=== PATIENT | male | born 1970 | race Caucasian/White ===

== ENCOUNTER 2017-08-22 09:57 | Emergency (ER) | payer SELFPAY ==
[~2017-08-22] VITALS: Ht 180.3 cm; Wt 79.0 kg
[2017-08-22 10:05] VITALS: TEMP 36.3; Ht 180.3 cm; Wt 79.0 kg
[2017-08-22] MEDS ORDERED: ACETAMINOPHEN 500 MG TAB PO STA (10:47)
[2017-08-22] MEDS ORDERED: MoRPHine SULFATE 4 MG/ML 1 ML CARP\\VIAL IV STA (10:47)
[2017-08-22] MEDS ORDERED: KETOROLAC TROMETHAMINE 30 MG/ML VIAL IV STA (10:47)
[2017-08-22] MEDS ORDERED: KFL/250 PO (10:49)
[2017-08-22] MEDS ORDERED: SULF1TAB92 PO (10:49)
--- NOTE | 2017-08-22 10:52 | EMERGENCY ROOM VISIT NOTE ---
History Report prepared by Masood: Cira Cabrales Under the Supervision of: Dr. Gil Hoyos M.D. First contact with patient: 10:13 Chief Complaint: INFECTION Stated Complaint: INFECTION,MRSA History of Present Illness The patient is a 46 year old white male with a past medical history of hypertension who presents to the ED with a cc of persistent left hand and finger pain beginning several days ago. Positive left hand and finger swelling and numbness. He currently rates his discomfort as a 9.5/10 in severity. The patient states that he was recently diagnosed with MRSA noting that yesterday morning he was started on Bactrim and Keflex. He states that he notices a pressure pain to his fingers and a burning pain in his hand. He states that he has had difficulty sleeping due to the pain. The patient reports trying heat compresses, Tylenol, and elevation without relief of his symptoms. He denies any recent injury. Source of History: patient Onset: several days ago Position: hand (left), finger(s) (left) Symptom Intensity: 9.5/10 Quality: pressure, burning Timing: other (persistent) Associated Symptoms: + numbness (left hand and finger) Note: Associated symptoms: left hand and finger swelling Review of Systems See HPI for pertinent positives and negatives. A total of ten systems were reviewed and were otherwise negative. Past Medical & Surgical Medical Problems: (1) Hypertension Family History No pertinent family history stated. Social History Smoking Status: Current Every Day Smoker Marital Status: single Occupation Status: unemployed Current/Historical Medications Scheduled Cephalexin Monohydrate (Keflex), 250 MG PO QID Trimethoprim/Sulfamethoxazole (Bactrim 400MG/80MG), 1 TAB PO Q12H Physical Exam Vital Signs Date Time Temp Pulse Resp B/P (MAP) Pulse Ox O2 Delivery O2 Flow Rate FiO2 08/22/17 13:27 74 143/81 99 Room Air 08/22/17 12:07 73 134/97 100 Room Air 08/22/17 10:05 36.3 97 17 150/101 98 Room Air Physical Exam GENERAL: Awake, alert, well-appearing, NAD HENT: Normocephalic, atraumatic. EYES: Normal conjunctiva. Sclera non-icteric. NECK: Supple. No nuchal rigidity. FROM. RESPIRATORY: CTAB, no rhonchi, wheezing, crackles CARDIAC: RRR, no MRG ABDOMEN: Soft, NTND, BS+ MSK: Left hand has some swelling at the base of the 4th and 5th digit, tender to palpation, held in flexion, painful extension, no pain flexion or extension of the wrist, sensory intact, No chest wall TTP, no LE edema NEURO: GCS 15, CN 2-12 intact, moves all 4s on command SKIN: No rash or jaundice noted. Medical Decision & Procedures ER Provider Diagnostic Interpretation: X-ray: Per my interpretation, radiologist review. R HAND MIN 3 VIEWS ROUTINE HISTORY: 46 years-old Male hand pain acute left hand pain with soft tissue infection COMPARISON: None available TECHNIQUE: 3 views of the left hand FINDINGS: The patient is slightly rotated on the lateral projection. There is mild flexion of the interphalangeal joints which mildly limits the study. 3 mm positive ulnar variance. Mild subcortical cystic change of the proximal triquetrum. Moderate degenerative changes of the first carpal metacarpal joint. Mild cortical thickening involving the fifth proximal phalanx laterally may reflex: Remote trauma. No acute fracture, subluxation or erosive changes. Mild soft tissue swelling about the dorsal hand. There is a linear 2 mm foreign body within the soft tissues of the thumb along the ulnar aspect of the first proximal phalanx. IMPRESSION: 1. Soft tissue swelling without fracture. 2. 2 mm metallic density foreign body within the soft tissues along the ulnar aspect of the first proximal phalanx. The above report was generated using voice recognition software. It may contain grammatical, syntax or spelling errors. Electronically signed by: Kvng Spivey M.D. 08/22/2017 12:53 PM Dictated Date/Time: 08/22/2017 12:50 PM Laboratory Results 08/22/17 11:39 Red Blood Count 4.73, Mean Corpuscular Volume 92.4, Mean Corpuscular Hemoglobin 32.8, Mean Corpuscular Hemoglobin Concent 35.5, Mean Platelet Volume 9.4, Neutrophils (%) (Auto) 73.9, Lymphocytes (%) (Auto) 12.4, Monocytes (%) (Auto) 12.3, Eosinophils (%) (Auto) 1.0, Basophils (%) (Auto) 0.2, Neutrophils # (Auto ) 8.88, Lymphocytes # (Auto) 1.49, Monocytes # (Auto) 1.48, Eosinophils # (Auto ) 0.12, Basophils # (Auto) 0.02 08/22/17 11:39 Test 08/22/17 11:39 White Blood Count 12.02 K/uL (4.8-10.8) Red Blood Count 4.73 M/uL (4.7-6.1) Hemoglobin 15.5 g/dL (14.0-18.0) Hematocrit 43.7 % (42-52) Mean Corpuscular Volume 92.4 fL (80-100) Mean Corpuscular Hemoglobin 32.8 pg (25-34) Mean Corpuscular Hemoglobin Concent 35.5 g/dl (32-36) Platelet Count 216 K/uL (130-400) Mean Platelet Volume 9.4 fL (7.4-10.4) Neutrophils (%) (Auto) 73.9 % Lymphocytes (%) (Auto) 12.4 % Monocytes (%) (Auto) 12.3 % Eosinophils (%) (Auto) 1.0 % Basophils (%) (Auto) 0.2 % Neutrophils # (Auto) 8.88 K/uL (1.4-6.5) Lymphocytes # (Auto) 1.49 K/uL (1.2-3.4) Monocytes # (Auto) 1.48 K/uL (0.11-0.59) Eosinophils # (Auto) 0.12 K/uL (0-0.5) Basophils # (Auto) 0.02 K/uL (0-0.2) RDW Standard Deviation 45.3 fL (36.4-46.3) RDW Coefficient of Variation 13.4 % (11.5-14.5) Immature Granulocyte % (Auto) 0.2 % Immature Granulocyte # (Auto) 0.03 K/uL (0.00-0.02) Erythrocyte Sedimentation Rate 9 mm/hr (0-14) Anion Gap 5.0 mmol/L (3-11) Est Creatinine Clear Calc Drug Dose 107.9 ml/min Estimated GFR () 116.0 Estimated GFR (Non- 100.1 BUN/Creatinine Ratio 10.8 (10-20) Calcium Level 9.1 mg/dl (8.5-10.1) C-Reactive Protein 0.69 mg/dl (0-0.29) Laboratory results reviewed by me Medications Administered Medications (Trade) Dose Ordered Sig/Jacquelyn Route Start Time Stop Time Status Last Admin Dose Admin Acetaminophen (Tylenol Tab) 1,000 mg NOW STAT PO 08/22/17 10:47 08/22/17 10:49 DC 08/22/17 11:29 1,000 MG Ketorolac Tromethamine (Toradol Inj) 30 mg NOW STAT IV 08/22/17 10:47 08/22/17 10:49 DC 08/22/17 11:30 30 MG Morphine Sulfate (MoRPHine SULFATE INJ) 4 mg NOW STAT IV 08/22/17 10:47 08/22/17 10:49 DC 08/22/17 11:31 4 MG Clindamycin Phosphate 900 mg/ Dextrose 106 ml @ 100 mls/hr ONE ONCE IV 08/22/17 11:00 08/22/17 12:03 DC 08/22/17 12:05 100 MLS/HR ED Course 1040: The patient was evaluated in room C10. A complete history and physical exam was performed. 1230: I reevaluated the patient and he is resting comfortably. I discussed the test results with him and I discussed the treatment plan. He verbalized complete understanding and agreement. He is going to be evaluated for further treatment. 1234: I discussed the patients case with Dr. Tanner, [facility]. He is going to evaluate the patient for further treatment. He would like orthopedics to be consulted. 1237: Dr. Courtney, Orthopedics was paged at this time. 1415: I reevaluated the patient and he is wanting to leave against medical advice. He is going to take some time to reconsider. 1417: Per nursing staff the patient is going to leave against medical advice. Medical Decision Differential diagnosis: Etiologies such as cellulitis, abscess, MRSA infection, DVT, necrotizing fasciitis, dermatitis, drug eruption, FTS, as well as others were entertained. The patient is a 46 year old white male with a past medical history of hypertension who presents to the ED with a cc of persistent left hand and finger pain beginning several days ago. Patient was seen and evaluated at the bedside. Patient is a fairly well- appearing 46-year-old gentleman that recently moved from [place]. Patient was recently seen yesterday for a left hand infection for which she was given Keflex and Bactrim. On exam patient does have some mild swelling and pain at the base of the fourth and fifth digit of the left hand. Patient does have some pain with extension and is held in flexion. Patient's neuro intact. Given the concern for possible underlying hand infection that may develop into flexor tenosynovitis patient did have blood work completed and was given pain control and antibiotics. Patient blood work but blood cell count of 12,000. Patient's fairly normal kidney function. Mild hyponatremia. I did discuss the patient with the hospitalist who agreed to admit the patient for observation and follow-up. I did reassess the patient who stated he was feeling improved. Patient did also have a noted area of cellulitis and induration on the posterior aspect of the right thigh. I do not believe there is anything that needs to be drained from this area as it is fairly indurated. The [facility] group consult given that they have a dedicated hand service. Patient was admitted to medicine. On reassessment the patient did not want to stay for further treatment. I did discuss the risks versus the benefits of staying and/or leaving. He is fully aware of all repercussions. Patient was told to continue his by mouth antibiotics which she was already prescribed. Patient left AGAINST MEDICAL ADVICE. The admitting hospitalist was made aware. Medication Reconcilliation Current Medication List: was personally reviewed by me Consults Time Called: 1224 Consulting Physician: GEOVANNI Villarreal Returned Call: 1234 I discussed the patients case with GEOVANNI Villarreal. He is going to evaluate the patient for further treatment. He would like orthopedics to be consulted. Impression Primary Impression: Cellulitis of left hand Additional Impression: Cellulitis of right thigh Scribe Attestation The scribe's documentation has been prepared under my direction and personally reviewed by me in its entirety. I confirm that the note above accurately reflects all work, treatment, procedures, and medical decision making performed by me. Departure Information Dispostion Against Medical Advice Referrals Usha Colón M.D. (PCP) Problem Qualifiers
[2017-08-22] MEDS ORDERED: CLINDAMYCIN IV 900 MG in DEXTROSE 5% 100ML 100 ML IV ONE (11:00)
[2017-08-22 11:52] LABS: BASO % 0.2 %; BASO ABS # 0.02 K/uL (0-0.2); COMPLETE YES; HEMATOCRIT 43.7 % (42-52); IG% 0.2 %; LYMPH % 12.4 %; LYMPH ABS # 1.49 K/uL (1.2-3.4); MEAN CELL VOLUME 92.4 fL (80-100); MEAN CORPUSCULAR HEMOGLOBIN 32.8 pg (25-34); MEAN CORPUSCULAR HGB CONC 35.5 g/dl (32-36); MEAN PLATELET VOLUME 9.4 fL (7.4-10.4); MONO % 12.3 %; NEUT % 73.9 %; PLATELET COUNT 216 K/uL (130-400); RED BLOOD COUNT 4.73 M/uL (4.7-6.1); WHITE BLOOD COUNT 12.02 K/uL (4.8-10.8)
[2017-08-22 12:09] LABS: BUN/CREATININE RATIO 10.8 (10-20); C-REACTIVE PROTEIN 0.69 mg/dl (0-0.29); CALCIUM 9.1 mg/dl (8.5-10.1); CREATININE 0.92 mg/dl (0.60-1.40); POTASSIUM 4.6 mmol/L (3.5-5.1)
--- NOTE | 2017-08-22 12:55 | DIAGNOSTIC IMAGING REPORT ---
R HAND MIN 3 VIEWS ROUTINE HISTORY: 46 years-old Male hand pain acute left hand pain with soft tissue infection COMPARISON: None available TECHNIQUE: 3 views of the left hand FINDINGS: The patient is slightly rotated on the lateral projection. There is mild flexion of the interphalangeal joints which mildly limits the study. 3 mm positive ulnar variance. Mild subcortical cystic change of the proximal triquetrum. Moderate degenerative changes of the first carpal metacarpal joint. Mild cortical thickening involving the fifth proximal phalanx laterally may reflex: Remote trauma. No acute fracture, subluxation or erosive changes. Mild soft tissue swelling about the dorsal hand. There is a linear 2 mm foreign body within the soft tissues of the thumb along the ulnar aspect of the first proximal phalanx. IMPRESSION: 1. Soft tissue swelling without fracture. 2. 2 mm metallic density foreign body within the soft tissues along the ulnar aspect of the first proximal phalanx. The above report was generated using voice recognition software. It may contain grammatical, syntax or spelling errors. Electronically signed by: Kvng Spivey M.D. 08/22/2017 12:53 PM Dictated Date/Time: 08/22/2017 12:50 PM
[2017-08-22 13:27] VITALS: BP 143/81; PULSE 74; O2SAT 99
--- NOTE | 2017-08-22 14:15 | DIAGNOSTIC IMAGING REPORT ---
L HAND MIN 3 VIEWS ROUTINE HISTORY: 46 years-old Male PAIN L acute left hand pain with soft tissue infection COMPARISON: None available TECHNIQUE: 3 views of the left hand FINDINGS: The patient is slightly rotated on the lateral projection. There is mild flexion of the interphalangeal joints which mildly limits the study. 3 mm positive ulnar variance. Mild subcortical cystic change of the proximal triquetrum. Moderate degenerative changes of the first carpal metacarpal joint. Mild cortical thickening involving the fifth proximal phalanx laterally may reflex: Remote trauma. No acute fracture, subluxation or erosive changes. Mild soft tissue swelling about the dorsal hand. There is a linear 2 mm foreign body within the soft tissues of the thumb along the ulnar aspect of the first proximal phalanx. IMPRESSION: 1. Soft tissue swelling without fracture. 2. 2 mm metallic density foreign body within the soft tissues along the ulnar aspect of the first proximal phalanx. The above report was generated using voice recognition software. It may contain grammatical, syntax or spelling errors. Electronically signed by: Kvng Spivey M.D. 08/22/2017 2:48 PM Dictated Date/Time: 08/22/2017 12:50 PM
[2017-08-22] MEDS ORDERED: CEPH500C2 PO (20:52)
[2017-08-22] MEDS ORDERED: SULF800T23 PO (20:52)
== END 2017-08-22 14:40 | disposition left against medical advice (07) ==
LOC: C.EDB 09:58 → C.EDC 14:40
DX: L03.114 Cellulitis of left upper limb (principal); L03.115 Cellulitis of right lower limb; I10 Essential (primary) hypertension; F17.200 Nicotine dependence, unspecified, uncomplicated

== ENCOUNTER 2017-08-22 20:20 | Emergency (ER) | payer SELFPAY ==
[~2017-08-22] VITALS: Ht 180.3 cm; Wt 81.5 kg
[~2017-08-22 20:20] MED LIST: KFL/250 PO; SULF1TAB92 PO
[2017-08-22 20:22] VITALS: Ht 180.3 cm; Wt 81.5 kg
[2017-08-22] MEDS ORDERED: CEPH500C2 PO (20:52)
[2017-08-22] MEDS ORDERED: SULF800T23 PO (20:52)
[2017-08-22] MEDS ORDERED: CLINDAMYCIN IV 600 MG in DEXTROSE 5% 50ML 50 ML IV STA (20:55)
[2017-08-22] MEDS ORDERED: VANCOMYCIN INJ 1,000 MG in SODIUM CHLORIDE 0.9% 250ML 250 ML IV STA (20:55)
[2017-08-22] MEDS ORDERED: ONDANSETRON INJ 2 MG/ML 2 ML VIAL IV STA (20:55)
[2017-08-22] MEDS ORDERED: CEFEPIME IV 2,000 MG in DEXTROSE 5% 100ML 100 ML IV STA (20:55)
[2017-08-22] MEDS ORDERED: HYDROmorphone INJ 1 MG/ML SYR IV STA ×2 (20:55→22:59)
[2017-08-22] MEDS ORDERED: KETOROLAC TROMETHAMINE 30 MG/ML VIAL IV STA (20:55)
--- NOTE | 2017-08-22 21:04 | EMERGENCY ROOM VISIT NOTE ---
History Report prepared by Masood: Porter Hernadez Under the Supervision of: Dr. Tim Willis M.D. First contact with patient: 20:27 Chief Complaint: HAND PAIN/INJURY Stated Complaint: PAIN,SWELLING,STAPH INFECTION L HAND History of Present Illness The patient is a 46 year old male who presents to the Emergency Room with complaints of worsening left hand pain that started a couple of days ago. He rates his discomfort as a 10/10 in severity. The patient states that he went to his doctor two days ago where he was diagnosed with an infection and was given Bactrim and Keflex. He reports that he has been taking his medication, but reports that his hand has worsened. The patient states that he came into the ED this morning, but left against medical advice due to an interview he had today. He reports that after leaving the hospital, his hand worsened and is twice as swollen as it originally was this morning. The patient states that his whole hand is in pain and he reports there is a burning sensation between his fingers and on his palm. Source of History: patient Onset: a couple of days ago Position: hand (left) Symptom Intensity: 10/10 Quality: burning Timing: worsening Modifying Factors (Relieving): other (Bactrim, Keflex) Review of Systems See HPI for pertinent positives & negatives. A total of 10 systems reviewed and were otherwise negative. Past Medical & Surgical Medical Problems: (1) Hypertension Family History Patient reports no known family medical history. Social History Smoking Status: Current Every Day Smoker Marital Status: single Occupation Status: unemployed Current/Historical Medications Scheduled Cephalexin Monohydrate (Keflex), 500 MG PO Q12 Sulfamethoxazole-Trimethoprim (Bactrim Ds 800MG/160MG), 1 TAB PO BID Allergies Coded Allergies: No Known Allergies (Unverified , 08/22/17) Physical Exam Vital Signs Date Time Temp Pulse Resp B/P (MAP) Pulse Ox O2 Delivery O2 Flow Rate FiO2 08/23/17 00:08 36.5 79 18 120/71 98 08/22/17 22:54 88 18 120/71 96 Room Air 08/22/17 21:03 95 08/22/17 20:22 36.5 111 18 146/85 95 Room Air Physical Exam GENERAL: Patient is a healthy-appearing well-nourished 46 year old male HEAD: Normocephalic atraumatic EYES: Ocular movements intact pupils equal and react to light OROPHARYNX mucous membranes are moist no exudates present no erythema or edema present NECK: Supple no nuchal rigidity CHEST: Good equal expansion LUNGS: Clear and equal to auscultation CARDIAC: Normal S1 and S2 ABDOMEN: Soft nontender no guarding BACK: No CVA tenderness EXTREMITIES: No pain upon palpation normal muscle strength in all groups no clubbing cyanosis or edema. Fingers flexed in position of comfort. Exquisite pain with passive extension of the fingers. Area of cellulitis to fourth and fifth finger present. Asymmetrical enlargement of fourth and fifth finger. NEURO: Patient is following commands and answering questions appropriately. Alert and oriented x3 Cranial Nerves 2-12 grossly intact Medical Decision & Procedures Laboratory Results 08/22/17 20:55 Red Blood Count 4.72, Mean Corpuscular Volume 91.5, Mean Corpuscular Hemoglobin 31.6, Mean Corpuscular Hemoglobin Concent 34.5, Mean Platelet Volume 9.6, Neutrophils (%) (Auto) 75.2, Lymphocytes (%) (Auto) 13.7, Monocytes (%) (Auto) 9.1, Eosinophils (%) (Auto) 1.4, Basophils (%) (Auto) 0.2, Neutrophils # (Auto) 8.53, Lymphocytes # (Auto) 1.56, Monocytes # (Auto) 1.03, Eosinophils # (Auto) 0.16, Basophils # (Auto) 0.02 08/22/17 20:55 Test 08/22/17 20:55 White Blood Count 11.35 K/uL (4.8-10.8) Red Blood Count 4.72 M/uL (4.7-6.1) Hemoglobin 14.9 g/dL (14.0-18.0) Hematocrit 43.2 % (42-52) Mean Corpuscular Volume 91.5 fL (80-100) Mean Corpuscular Hemoglobin 31.6 pg (25-34) Mean Corpuscular Hemoglobin Concent 34.5 g/dl (32-36) Platelet Count 233 K/uL (130-400) Mean Platelet Volume 9.6 fL (7.4-10.4) Neutrophils (%) (Auto) 75.2 % Lymphocytes (%) (Auto) 13.7 % Monocytes (%) (Auto) 9.1 % Eosinophils (%) (Auto) 1.4 % Basophils (%) (Auto) 0.2 % Neutrophils # (Auto) 8.53 K/uL (1.4-6.5) Lymphocytes # (Auto) 1.56 K/uL (1.2-3.4) Monocytes # (Auto) 1.03 K/uL (0.11-0.59) Eosinophils # (Auto) 0.16 K/uL (0-0.5) Basophils # (Auto) 0.02 K/uL (0-0.2) RDW Standard Deviation 44.0 fL (36.4-46.3) RDW Coefficient of Variation 13.2 % (11.5-14.5) Immature Granulocyte % (Auto) 0.4 % Immature Granulocyte # (Auto) 0.05 K/uL (0.00-0.02) Anion Gap 6.0 mmol/L (3-11) Est Creatinine Clear Calc Drug Dose 74.7 ml/min Estimated GFR () 74.3 Estimated GFR (Non- 64.1 BUN/Creatinine Ratio 10.4 (10-20) Calcium Level 8.9 mg/dl (8.5-10.1) Total Bilirubin 0.2 mg/dl (0.2-1) Direct Bilirubin < 0.1 mg/dl (0-0.2) Aspartate Amino Transf (AST/SGOT) 17 U/L (15-37) Alanine Aminotransferase (ALT/SGPT) 31 U/L (12-78) Alkaline Phosphatase 116 U/L (45-117) Total Protein 6.8 gm/dl (6.4-8.2) Albumin 3.5 gm/dl (3.4-5.0) Lipase 225 U/L (73-393) Labs reviewed by ED physician. Medications Administered Medications (Trade) Dose Ordered Sig/Jacquelyn Route Start Time Stop Time Status Last Admin Dose Admin Hydromorphone HCl (Dilaudid Inj) 1 mg NOW STAT IV 08/22/17 20:55 08/22/17 20:58 DC 08/22/17 21:09 1 MG Ketorolac Tromethamine (Toradol Inj) 30 mg NOW STAT IV 08/22/17 20:55 08/22/17 20:58 DC 08/22/17 21:08 30 MG Ondansetron HCl (Zofran Inj) 4 mg NOW STAT IV 08/22/17 20:55 08/22/17 20:58 DC 08/22/17 21:08 4 MG Cefepime HCl 2000 mg/Dextrose 112.5 ml @ 200 mls/hr NOW STAT IV 08/22/17 20:55 08/22/17 21:28 DC 08/22/17 21:53 200 MLS/HR Vancomycin HCl 1000 mg/Sodium Chloride 270 ml @ 125 mls/hr NOW STAT IV 08/22/17 20:55 08/22/17 23:04 DC 08/22/17 21:53 125 MLS/HR Clindamycin Phosphate 600 mg/ Dextrose 54 ml @ 100 mls/hr ONE STAT IV 08/22/17 20:55 08/22/17 21:27 DC 08/22/17 21:12 100 MLS/HR Hydromorphone HCl (Dilaudid Inj) 1 mg NOW STAT IV 08/22/17 22:59 08/22/17 23:00 DC 08/22/17 23:10 1 MG ED Course 2048: Past medical records reviewed. The patient was evaluated in room A10. A complete history and physical examination was performed. 2054: Ordered Clindamycin Phosphate 600 mg/ Dextrose 54 ml @ 100 mls/hr IV, Vancomycin HCl 1000 mg/ Sodium Chloride 270 ml @ 125 mls/hr IV, Cefepime HCl 2000 mg/Dextrose 112.5 ml @ 200 mls/hr IV, Zofran Injection 4 mg IV, Toradol Injection 30 mg IV, Dilaudid Injection 1 mg IV. 5: I discussed the patients case with Dr. Medina, [facility]. He suggests discussing the patients case with [facility]. 2146: I discussed the patients case with Dr. Rosas, [facility]. He suggests that the patient is sent to tertiary care. 5: I discussed the patients case with Dr. Ware, [facility] Surgery. She suggests talking to Dr. Courtney. 2225: I discussed the patients case with Dr. Mares, [facility], and Dr. Fierro, [facility]. They understand the patients condition and agree to accept the patient. The patient will be further evaluated. 2238: I reevaluated the patient and he is resting comfortably. I updated him on his results and treatment plan. He agrees to the plan and is ready for transfer. Medical Decision Differential diagnosis: Etiologies such as cellulitis, abscess, MRSA infection, DVT, necrotizing fasciitis, dermatitis, drug eruption, as well as others were entertained. This is a 46-year-old male who presents back to the emergency department after signing out AGAINST MEDICAL ADVICE earlier. The patient is complaining of pain to the fourth and fifth finger of his left hand. The patient is holding the fingers and a slightly flexed position of comfort area he is exquisitely tender with extension of the finger. Based on these findings I'm concerned that the patient has infectious flexor tenosynovitis. Therefore blood cultures were obtained. The patient does have an elevation in his white blood count cell count. He was given Dilaudid 2 along with cefepime clindamycin and vancomycin. I did discuss the case with the orthopedist rehabilitation aide/scheduler who asked that the patient be discussed with [facility]. The [facility] does not have their hand surgeon available so they asked that the patient be transferred to a tertiary care center. I first discussed the case with [facility] however they do not have a hand surgeon on-call. The patient was then discussed past with [facility] who agreed to accept the patient to the emergency department. I discussed my findings with the patient. Both patient and significant other were in agreement with the treatment plan. Medication Reconcilliation Current Medication List: was personally reviewed by me Blood Pressure Screening Patient's blood pressure: Elevated blood pressure Blood pressure disposition: Referred to PCP Consults Time Called: 2124 Consulting Physician: Dr. Medina, [facility] Returned Call: 2124 I discussed the patients case with Dr. Medina, [facility]. He suggests discussing the patients case with [facility]. Additional Consults: Time Called: 2126 Consulted Physician: [facility] Returned Call: 2146 Additional Comments: I discussed the patients case with Dr. Rosas [facility]. He suggests that the patient is sent to tertiary care. Time Called: 2214 Consulted Physician: Dr. Ware, [facility] Returned Call: 2214 Additional Comments: I discussed the patients case with Dr. Ware, [facility]. She suggests talking to Dr. Courtney. 2224: I discussed the patients case with [facility], and Dr. Fierro [facility]. They understand the patients condition and agree to accept the patient. The patient will be further evaluated. Impression Primary Impression: Flexor tenosynovitis of finger Scribe Attestation The scribe's documentation has been prepared under my direction and personally reviewed by me in its entirety. I confirm that the note above accurately reflects all work, treatment, procedures, and medical decision making performed by me. Departure Information Dispostion Transfer Acute Care Facility Referrals No Doctor, Assigned (PCP) Patient Instructions My [facility]
[2017-08-22 21:13] LABS: BASO % 0.2 %; BASO ABS # 0.02 K/uL (0-0.2); COMPLETE YES; EOS % 1.4 %; HEMATOCRIT 43.2 % (42-52); IG% 0.4 %; LYMPH % 13.7 %; LYMPH ABS # 1.56 K/uL (1.2-3.4); MEAN CELL VOLUME 91.5 fL (80-100); MEAN CORPUSCULAR HEMOGLOBIN 31.6 pg (25-34); MEAN CORPUSCULAR HGB CONC 34.5 g/dl (32-36); MEAN PLATELET VOLUME 9.6 fL (7.4-10.4); MONO % 9.1 %; NEUT % 75.2 %; PLATELET COUNT 233 K/uL (130-400); RED BLOOD COUNT 4.72 M/uL (4.7-6.1); WHITE BLOOD COUNT 11.35 K/uL (4.8-10.8)
[2017-08-22 21:31] LABS: ALT/SGPT 31 U/L (12-78); AST/SGOT 17 U/L (15-37); BLOOD UREA NITROGEN 14 mg/dl (7-18); BUN/CREATININE RATIO 10.4 (10-20); CALCIUM 8.9 mg/dl (8.5-10.1); CARBON DIOXIDE 29 mmol/L (21-32); CHLORIDE 99 mmol/L (98-107); CREATININE 1.33 mg/dl (0.60-1.40); GLUCOSE 112 mg/dl (70-99); POTASSIUM 4.1 mmol/L (3.5-5.1); SODIUM 135 mmol/L (136-145)
[2017-08-22 21:33] LABS: ALKALINE PHOSPHATASE 116 U/L (45-117)
[2017-08-23 00:08] VITALS: BP 120/71; PULSE 79; TEMP 36.5; O2SAT 98
[2017-08-24] MEDS ORDERED: RXC5 PO (15:32)
[2017-08-24] MEDS ORDERED: OXYC1TAB3 PO (17:25)
[2017-08-24] MEDS ORDERED: SULF800T23 PO (17:25)
== END 2017-08-23 00:09 | disposition short-term general hospital (02) ==
LOC: C.EDB 20:21 → C.EDA 08-23 00:09
DX: M65.142 Other infective (teno)synovitis, left hand (principal); M79.642 Pain in left hand

== ENCOUNTER 2017-08-24 14:56 | Emergency (ER) | payer SELFPAY ==
[~2017-08-24] VITALS: Ht 180.3 cm; Wt 83.7 kg
[~2017-08-24 14:56] MED LIST changes: +CEPH500C2 PO; +SULF800T23 PO
[2017-08-24 14:59] VITALS: TEMP 36.5; Ht 180.3 cm; Wt 83.7 kg
[2017-08-24] MEDS ORDERED: RXC5 PO (15:32)
--- NOTE | 2017-08-24 15:36 | EMERGENCY ROOM VISIT NOTE ---
History First contact with patient: 15:06 Chief Complaint: HAND PAIN/INJURY Stated Complaint: HAND PAIN LEFT History of Present Illness The patient is a 46 year old male who presents to the Emergency Room via private vehicle with complaints of "hand pain left". This right-hand dominant male states that he was seen here 2 days ago and was sent to [facility] secondary to a MRSA infection of his left hand. He states that he had surgery performed yesterday morning. He states that he was to stay for another round of IV antibiotics. Due to time restraints could not. He states he was able to be sent home and was to be given Bactrim, Keflex and oxycodone. Once he arrived to his pharmacy there was only Bactrim. He states that he called to discuss this with someone at [facility] today and they recommended soaks and packing removal or if not to return to have that performed at a local facility. He notes that the drive down to [place] was quite far therefore came here instead. He notes the surgery was performed by Dr. Mathur of [facility]. Review of Systems A complete 10-point Review of Systems was discussed with the patient, with pertinent positives and negatives listed in the History of Present Illness. All remaining Review of Systems questions can be considered negative unless otherwise specified. Past Medical/Surgical History Medical Problems: (1) Hypertension Family History Patient reports no known family medical history. Non contributory. Social History Smoking Status: Unknown if Ever Smoked Marital Status: single Occupation Status: unemployed Pt. now lives locally Current/Historical Medications Scheduled Cephalexin Monohydrate (Keflex), 500 MG PO Q12 Oxycodone HCl (Oxycodone HCl), 1 TAB PO BID Sulfa/Trimethoprim (Bactrim Ds 800MG/160MG), 1 TAB PO BID Sulfamethoxazole-Trimethoprim (Bactrim Ds 800MG/160MG), 1 TAB PO BID Scheduled PRN Oxycodone Ir (Roxicodone Ir), 1-2 TAB PO Q4H PRN for Pain Physical Exam Vital Signs Date Time Temp Pulse Resp B/P (MAP) Pulse Ox O2 Delivery O2 Flow Rate FiO2 08/24/17 14:59 36.5 97 20 134/90 99 Room Air Physical Exam VITAL SIGNS - Vital signs and nursing notes were reviewed. Stable. GENERAL - 46-year-old male appearing his stated age who is in no acute distress. Communicates well with provider and answers questions appropriately. SKIN - Without rashes. Right hand with well healed impact surgical excisions. HEAD - NC/AT. EXTREMITIES - No clubbing or peripheral cyanosis. No pretibial edema present. Decreased range of motion of the hand secondary to pain. Packing in place. No evidence of infection. Sensory intact to Light touch throughout. Medical Decision & Procedures Medications Administered Medications (Trade) Dose Ordered Sig/Jacquelyn Route Start Time Stop Time Status Last Admin Dose Admin Oxycodone HCl (Roxicodone Immediate Rel Tab) 5 mg NOW STAT PO 08/24/17 16:50 08/24/17 16:51 DC 08/24/17 16:59 5 MG Oxycodone HCl (Roxicodone Immediate Rel 5MG Home Pack) 1 homepack UD STAT PO 08/24/17 16:50 08/24/17 16:51 DC 08/24/17 17:30 1 HOMEPACK Medical Decision Patient was seen and evaluated as above. He presents to us today with hand pain. The left hand does exhibit healing surgical incisions. There is one suture. There are [address] At this time I discussed the case with the attending physician, and subsequently the physician adoption coordinator for Dr. Mathur, Dr. aLw he was [facility]. He notes he was a resident. He recommended having the patient performed the soaks twice a day and have him follow up with their office by calling Saturday. He notes that the patient did leave AMA. The pain then was then revoked. Decision was then made to light. Place him on Bactrim, remove the packing, clean the wound and have him follow-up. This was performed without difficulty. He was given 1 oxycodone tablet here for pain, home pack and prescription. Bactrim also written as he notes his pharmacy is closed. He is to follow closely with the group who performed the surgery by calling them Saturday. He was educated upon management , worrisome symptoms which to return, and was discharged home in good condition. No evidence of infection at this time. He appears to be healing. In evaluation treatment this patient following differential diagnoses were entertained: Infection, healing wound, among others. I suspect the patient presented today because he could not get the pain medication for the wound as well as in regard to how to care for the wound. He was educated upon such and his pain was addressed. I believe he is stable for outpatient management. Impression Primary Impression: Hand pain, left Departure Information Dispostion Home / Self-Care Condition GOOD Prescriptions Sulfa/Trimethoprim (Bactrim Ds 800MG/160MG) Tab 1 TAB PO BID for 14 Days, #28 TAB Prov: Nico Jameson PA-C 08/24/17 Oxycodone Ir (Roxicodone Ir) 5 Mg Tab 1-2 TAB PO Q4H Y for Pain, #24 TAB For Initial Treatment Prov: Nico Jameson PA-C 08/24/17 Referrals No Doctor, Assigned (PCP) Patient Instructions My [facility] Additional Instructions You have been treated in the Emergency Department for hand Pain. You have received pain medicine in the emergency department which impairs your ability to operate a vehicle. It is illegal for you to drive after receiving these medicines. You have been prescribed Oxy IR to be used for pain control. This is a narcotic medication. You cannot drive or consume alcohol while on this medicine. This medicine should only be used for pain that cannot be controlled with over-the- counter pain medicines. Please do the soaks as we discussed you're encouraged to do 10-15 minutes twice a day. Please continue due to dressings. Please call the hand specialist office Saturday to schedule follow-up. The suture will need to be removed likely by them. Please watch for worsening signs of infection. Such as redness, swelling or drainage. The Bactrim is 1 tablet every 12 hours for 14 days. Please return with any new/concerning symptoms. Thank you for your time.
[2017-08-24] MEDS ORDERED: OXYCODONE HCL IR 5 MG TAB (IMMEDIATE RELEASE) PO STA (16:50)
[2017-08-24] MEDS ORDERED: OXYCODONE IR HOME PACK PO STA (16:50)
[2017-08-24] MEDS ORDERED: SULF800T23 PO (17:25)
[2017-08-24] MEDS ORDERED: OXYC1TAB3 PO (17:25)
[2017-08-24 17:34] VITALS: BP 135/89; PULSE 80; O2SAT 96
== END 2017-08-24 17:36 | disposition home or self-care (01) ==
LOC: C.EDB 14:57 → C.EDA 17:36
DX: Z98.890 Other specified postprocedural states (principal); B95.62 Methicillin resistant Staphylococcus aureus infection as the cause of diseases classified elsewhere; I10 Essential (primary) hypertension

== ENCOUNTER 2017-08-29 15:32 | Emergency (ER) | payer SELFPAY ==
[~2017-08-29] VITALS: Ht 180.3 cm; Wt 79.7 kg
[~2017-08-29 15:32] MED LIST changes: -KFL/250 PO; +OXYC-90 PO; +RXC5 PO; -SULF1TAB92 PO
[2017-08-29 15:37] VITALS: Ht 180.3 cm; Wt 79.7 kg
--- NOTE | 2017-08-29 16:15 | DIAGNOSTIC IMAGING REPORT ---
LEFT HAND 3 VIEWS CLINICAL HISTORY: Left hand swelling. Clinical concern for infection. FINDINGS: 3 views of the left hand are compared to study dated 08/22/2017. The skeletal structures are well mineralized. No fracture is seen. Positive ulnar variance is noted. No bony erosion or periostitis is seen. Mild to moderate arthritic change is present at the first carpometacarpal articulation. Mild cortical thickening is again suggested involving the fifth proximal phalanx which may be related to remote trauma. A punctate metallic foreign body is again seen in the soft tissues adjacent to the first proximal phalanx. Mild soft tissue swelling is suggested along the ulnar aspect of the hand. No subcutaneous gas is seen. IMPRESSION: 1. No acute bony abnormality is seen in the left hand. 2. Mild soft tissue edema is noted. 3. Punctate metallic foreign body is again noted in the first finger. Electronically signed by: Alexander Cedeño M.D. 08/29/2017 4:13 PM Dictated Date/Time: 08/29/2017 4:10 PM
--- NOTE | 2017-08-29 16:22 | EMERGENCY ROOM VISIT NOTE ---
History Report prepared by Masood: Laura Kebede Under the Supervision of: Sandeep MalikO. First contact with patient: 15:39 Chief Complaint: HAND PAIN/INJURY Stated Complaint: HAND INJURY FROM SURGERY History of Present Illness The patient is a 46 year old male who presents to the Emergency Room with complaints of a persistent left hand pain that began after a hand surgery he had done 5-6 days ago. The patient states that he went to get his stitches out yesterday, noting they told him he might have an infection due to its appearance. He notes he has not followed up with his PCP yet. The patient states denies having any pain on his fingertips, noting he has a mixture of throbbing and numbness throughout his hand. He notes he is right hand dominant and that his tetanus shot is up to date. Numbness is along the base of the fifth digit. His pain is located along the fourth metacarpal. He denies any purulent discharge or drainage. He notes the swelling has improved significantly. Pt denies headache, change in vision, fevers, chest pain, shortness of breath, nausea, vomiting, or diarrhea. Source of History: patient Onset: 5-6 days ago Position: hand (right) Quality: other (hand pain) Timing: other (persistent) Review of Systems See HPI for pertinent positives & negatives. A total of 10 systems reviewed and were otherwise negative. Past Medical & Surgical Medical Problems: (1) Hypertension Family History Patient reports no known family medical history. Social History Smoking Status: Current Every Day Smoker Marital Status: single Occupation Status: unemployed Current/Historical Medications Scheduled Sulfa/Trimethoprim (Bactrim Ds 800MG/160MG), 1 TAB PO BID Scheduled PRN Oxycodone Immediate Rel Tab (Roxicodone Ir), 5 MG PO Q6H PRN for Pain Allergies Coded Allergies: No Known Allergies (Unverified , 08/24/17) Physical Exam Vital Signs Date Time Temp Pulse Resp B/P (MAP) Pulse Ox O2 Delivery O2 Flow Rate FiO2 08/29/17 16:51 36.6 84 18 147/99 99 08/29/17 15:37 36.5 90 18 166/119 95 Physical Exam GENERAL: Sitting up in bed, alert, well appearing, well nourished, no distress, non-toxic EYE EXAM: normal conjunctiva. OROPHARYNX: no exudate, no erythema, lips, buccal mucosa, and tongue normal and mucous membranes are moist NECK: supple, no nuchal rigidity, no adenopathy, non-tender LUNGS: Clear to auscultation. Normal chest wall mechanics HEART: no murmurs, S1 normal and S2 normal ABDOMEN: abdomen soft, non-tender, normo-active bowel sounds, no masses, no rebound or guarding. UPPER EXTREMITIES: 3x2 cm at base of left fifth MCP and 1.5cm laceration at the DIP on pepper surface, and 1.5cm on base of fourth digit, all are well and healing with no discharge. Full movement of left shoulder, elbow, and wrist. Whitish discoloration in webbing imbedded in 4th and 5th digit. Upper extremities are grossly normal. Difficulty closing/grasping with fourth and fifth digits LOWER EXTREMITIES: No pitting edema. NEURO EXAM: Normal sensorium, cranial nerves II-XII grossly intact, normal speech. Medical Decision & Procedures ER Provider Diagnostic Interpretation: Radiology results as stated below per my review and the radiologist's interpretation: LEFT HAND 3 VIEWS CLINICAL HISTORY: Left hand swelling. Clinical concern for infection. FINDINGS: 3 views of the left hand are compared to study dated 08/22/2017. The skeletal structures are well mineralized. No fracture is seen. Positive ulnar variance is noted. No bony erosion or periostitis is seen. Mild to moderate arthritic change is present at the first carpometacarpal articulation. Mild cortical thickening is again suggested involving the fifth proximal phalanx which may be related to remote trauma. A punctate metallic foreign body is again seen in the soft tissues adjacent to the first proximal phalanx. Mild soft tissue swelling is suggested along the ulnar aspect of the hand. No subcutaneous gas is seen. IMPRESSION: 1. No acute bony abnormality is seen in the left hand. 2. Mild soft tissue edema is noted. 3. Punctate metallic foreign body is again noted in the first finger. Electronically signed by: Alexander Cedeño M.D. 08/29/2017 4:13 PM Dictated Date/Time: 08/29/2017 4:10 PM Procedure 1622: 1 suture removed from palm of left fifth digit. ED Course ED COURSE: Vital signs were reviewed and showed normal vital signs. The patients medical record was reviewed The above diagnostic studies were performed and reviewed. ED treatments and interventions as stated above. 1540: The patient was evaluated in room A12. A complete history and physical examination was performed. 1620: Discussed with [facility] ortho who suggests the patient continues soaks of hand. 1622: 1 suture removed from palm of left fifth digit. 1630: Upon reevaluation, the patient is feeling better. I discussed the findings and the treatment plan with the patient. He verbalizes agreement and understanding. The patient was discharged home. Medical Decision The patient is a 46 year old male who presents to the ED with complaints of left hand pain. Patient is a 46-year-old male that recently had tenosynovitis and surgery 5-6 days ago at [facility] by orthopedic hand. Patient notes he has not followed up but he did see a PCP yesterday who thought it looked infected and referred him into the ER. Today he has no surrounding erythema, purulent discharge or induration. No fevers. He notes that it has been healing well and the redness has completely resolved. I discussed my findings with orthopedic hand. They recommending continuing antibiotics in combination with soaks. They did recommend removing suture. I stressed the importance of following up for possible therapy. I relayed all this to the patient. He was updated bedside. He will call [facility] hand to set up a follow-up appointment as I convinced him that he will likely need rehabilitation as he has difficulty making a full fist. Discussed with Pt concerning signs and symptoms to watch out for. Pt was instructed to follow up with their PCP and discussed with the patient their option to return to the ED at anytime for persistent or worsening symptoms. The appropriate anticipatory guidance and out-patient management, including indications for return to the emergency department, were explained at length to the patient and understood. Medication Reconcilliation Current Medication List: was personally reviewed by me Blood Pressure Screening Patient's blood pressure: Normal blood pressure Consults Time Called: 1620 Consulting Physician: [facility] orth[facility] Returned Call: 1620 Discussed with [facility] ortho who suggests the patient continues soaks of hand. Impression Primary Impression: Post-op pain Additional Impression: Hypertension Scribe Attestation The scribe's documentation has been prepared under my direction and personally reviewed by me in its entirety. I confirm that the note above accurately reflects all work, treatment, procedures, and medical decision making performed by me. Departure Information Dispostion Home / Self-Care Prescriptions Oxycodone Immediate Rel Tab (ROXICODONE IR) 5 Mg Tab 5 MG PO Q6H Y for Pain, #6 TAB Prov: Malik Lawson, DO 08/29/17 Referrals No Doctor, Assigned (PCP) Forms HOME CARE DOCUMENTATION FORM, IMPORTANT VISIT INFORMATION Patient Instructions My [facility] Additional Instructions Please follow up with your surgeon within the next 24-72 hours. Any redness, discharge from the incision, fevers greater than 100.4, increased swelling or worsening of pain please return immediately to the ER. You were given medications during this visit that will inhibit your ability to drive, operate machinery and work. Please do NOT drive, operate machinery or work for the next 12hrs. You were also given a prescription for a narcotic. While taking this medication you should also not drive, operate machinery and or work. Hand scheduling at [facility] is [phone] Problem Qualifiers Additional Impression: Hypertension Hypertension type: unspecified Qualified Codes: I10 - Essential (primary) hypertension
[2017-08-29] MEDS ORDERED: OXYC-737 PO (16:32)
[2017-08-29 16:51] VITALS: BP 147/99; PULSE 84; TEMP 36.6; O2SAT 99
== END 2017-08-29 16:53 | disposition home or self-care (01) ==
LOC: C.EDB 15:34 → C.EDA 16:53
DX: G89.18 Other acute postprocedural pain (principal); I10 Essential (primary) hypertension; F17.200 Nicotine dependence, unspecified, uncomplicated